=== PATIENT | male | born 1965 | race American Indian/Alaskan Native ===

== ENCOUNTER 2017-03-22 11:11 | Emergency (ER) | payer MEDICAID ==
--- NOTE | 2017-03-22 11:48 | XRay Report ---
Right ribs 3 views: History: Trauma/pain/swelling. Findings: No fracture or lytic lesion. Impression: No evidence of acute fracture.
[2017-03-22] MEDS ORDERED: TORADOL IM ONE (14:16)
[2017-03-22] MEDS ORDERED: FLEXERIL PO ONE (14:16)
[2017-03-22] MEDS ORDERED: NORCO 7.5/325 PO ONE (14:16)
[2017-03-22] MEDS ORDERED: CATAPRES PO ONE (15:51)
[2017-03-22 17:00] VITALS: BP 171/102
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
== END 2017-03-22 17:27 | disposition home or self-care (01) ==
LOC: ED 11:11
DX: R07.81 Pleurodynia (principal); F17.200 Nicotine dependence, unspecified, uncomplicated; Y08.89XA Assault by other specified means, initial encounter; Y93.9 Activity, unspecified; Y92.9 Unspecified place or not applicable; Y99.9 Unspecified external cause status
CPT/HCPCS: 71100; 96372; 99283; J1885

== ENCOUNTER 2021-10-20 04:41 | Emergency (ER) | payer MEDICAID, OTHER ==
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
[2021-10-20] MEDS ORDERED: HYDROcodone/ACETAMINOPHEN 5-325 MG TAB PO ONE (06:16)
--- NOTE | 2021-10-20 06:37 | Cat Scan Report ---
CT HEAD WITHOUT CONTRAST INDICATION / CLINICAL INFORMATION: Fall out of bunk bed. Headache and neck pain.. TECHNIQUE: CT of the head was performed without administration of intravenous contrast. All CT scans at this location are performed using CT dose reduction for ALARA by means of automated exposure contr ol. COMPARISON: None available. FINDINGS: CEREBRAL PARENCHYMA: No significant abnormality. No acute territorial infarct. HEMORRHAGE: None. EXTRA-AXIAL SPACES: Normal in size and morphology for the patient's age. VENTRICULAR SYSTEM: Normal in size and morphology for the patient's age. MIDLINE SHIFT / HERNIATION: None. CEREBELLUM / BRAINSTEM: No significant abnormality. ORBITS: The right lobe is hyperattenuating appearance suggesting possible silicone injection versus p rosthesis. Left lobe demonstrates prior cataract repair. Chronic fracture of the medial wall bilatera l orbits defect larger on the left.. SOFT TISSUES: No significant abnormality. SKULL: No significant abnormality. PARANASAL SINUSES / MASTOID AIR CELLS: Normal as visualized. ADDITIONAL FINDINGS: None. IMPRESSION: 1. No acute intracranial abnormality. 2. Chronic-appearing bilateral fractures of the medial orbital del castillo larger defect on the left. 3. The appearance of the right globe suggests prosthesis versus silicone injection. Signer Name: Barry Hernandez II, MD Signed: 10/20/2021 6:33 AM Workstation Name: [id number]
--- NOTE | 2021-10-20 06:39 | Cat Scan Report ---
CT CERVICAL SPINE WITHOUT CONTRAST INDICATION / CLINICAL INFORMATION: Fall out of bunk bed. Headache and neck pain.. TECHNIQUE: Axial CT images were obtained through the cervical spine. Sagittal and coronal reformatted images were produced. All CT scans at this location are performed using CT dose reduction for ALARA by means of automated exposure control. COMPARISON: None available. FINDINGS: SKULL BASE: No significant abnormality of the skull base. CRANIOCERVICAL JUNCTION: No significant abnormality of the craniocervical junction. ALIGNMENT: No significant abnormality of alignment. VERTEBRAL BODIES: Vertebral body heights fairly uniform throughout. DISK SPACES: Disk spaces are fairly uniform throughout. FACET JOINTS: Right facet articulation at C3-4 demonstrates osseous bridging and deformity suggesting sequelae of prior fractures. STENOSIS BY LEVEL: None. CENTRAL CANAL: No significant central stenosis. SOFT TISSUES: No significant abnormality of soft tissues or musculature. THYROID: No significant abnormality. UPPER CHEST: No significant abnormality of the visualized chest. ADDITIONAL FINDINGS: None. IMPRESSION: 1. No acute cervical spine injury. No significant degenerative changes. Signer Name: Barry Hernandez II, MD Signed: 10/20/2021 6:35 AM Workstation Name: [id number]
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
--- NOTE | 2021-10-20 07:30 | XRay Report ---
RIGHT SHOULDER 3 VIEW(S) INDICATION / CLINICAL INFORMATION: Traumatic right-sided shoulder. COMPARISON: None available. FINDINGS: BONES / JOINT(S): No acute fracture or subluxation. No significant arthritis. SOFT TISSUES: No significant abnormality. ADDITIONAL FINDINGS: None. IMPRESSION: 1. No acute findings. No significant abnormality. Signer Name: Barry Hernandez II, MD Signed: 10/20/2021 7:28 AM Workstation Name: [id number]
--- NOTE | 2021-10-20 07:30 | XRay Report ---
RIGHT RIBS 4 VIEWS INDICATION / CLINICAL INFORMATION: Fall and right-sided rib cage pain. COMPARISON: None available. FINDINGS: RIBS: No acute, displaced fracture or other acute abnormality. LUNGS: No acute findings. No pneumothorax. IMPRESSION: 1. No acute traumatic injury involving the chest. No displaced rib fractures. Signer Name: Barry Hernandez II, MD Signed: 10/20/2021 7:27 AM Workstation Name: [id number]
--- NOTE | 2021-10-20 09:09 | XRay Report ---
THORACIC SPINE 3 VIEWS INDICATION: fall from bunk bed; elbow pain; decrease ROM. Back pain COMPARISON: None. IMPRESSION: Normal alignment. No significant discogenic DJD or facet arthropathy. No acute osseous or soft tissue abnormality. LUMBOSACRAL SPINE 3 VIEWS INDICATION: fall from bunk bed; elbow pain; decrease ROM. Back pain COMPARISON: None. IMPRESSION: Normal alignment. 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 L5-S1 is the most affected level. No acute osseous or soft tissue abno rmality. PELVIS ONE VIEW INDICATION: fall from bunk bed; elbow pain; decrease ROM. Hip pain COMPARISON: None. IMPRESSION: No acute osseous or soft tissue abnormality. Anatomic alignment at both hips with no significant degenerative changes. RIGHT ELBOW 3 VIEWS INDICATION: fall from bunk bed; elbow pain; decrease ROM. COMPARISON: None. IMPRESSION: No acute osseous or soft tissue abnormality. Mild osteoarthritic changes are identifi ed at the elbow. Small olecranon spur. No joint effusion is appreciated. Signer Name: Adebayo Gold Jr, MD Signed: 10/20/2021 9:05 AM Workstation Name: [id number]
[2021-10-20 10:54] VITALS: BP 153/73
== END 2021-10-20 11:11 ==
LOC: ED 04:41 → EEVIPCON 04:41 → ED 11:11
DX: S22.31XA Fracture of one rib, right side, initial encounter for closed fracture (principal); S16.1XXA Strain of muscle, fascia and tendon at neck level, initial encounter; S79.912A Unspecified injury of left hip, initial encounter; S43.401A Unspecified sprain of right shoulder joint, initial encounter; W19.XXXA Unspecified fall, initial encounter; F17.200 Nicotine dependence, unspecified, uncomplicated; Y93.89 Activity, other specified; Y92.89 Other specified places as the place of occurrence of the external cause; Y99.8 Other external cause status
CPT/HCPCS: 70450; 72072; 72100; 72125; 72170; 99284